=== PATIENT | male | born 1950 | race Hispanic/Latino ===

== ENCOUNTER → 2022-03-09 | Outpatient (CLI) | payer OTHER, MEDICARE | END | disposition home or self-care (01) | LOC: RAH 09:08 | PROVIDERS: ATTEND Student in an Organized Health Care Education/Training Program | DX: Z01.818 Encounter for other preprocedural examination (principal); N18.6 End stage renal disease | CPT/HCPCS: 93970 ==

== ENCOUNTER 2022-05-02 06:32 | Day surgery (SDC) | payer OTHER, MEDICARE ==
[2022-04-30 11:53] LABS: BASOPHILS % (AUTO) 0.4 % (0.0-5.0); EOSINOPHILS % (AUTO) 3.3 % (0.0-8.0); HEMATOCRIT 45.5 % (42-54); LYMPHOCYTES % (AUTO) 16.3 % (21.0-51.0); MEAN CORPUSCULAR HEMOGLOBIN 27.7 pg (27.0-33.0); MEAN CORPUSCULAR HGB CONC 32.1 g/dL (32.0-36.0); MEAN CORPUSCULAR VOLUME 86.3 fL (79-99); MONOCYTES % (AUTO) 7.3 % (3.0-13.0); NEUTROPHILS % (AUTO) 72.1 % (40.0-77.0); PLATELET COUNT (AUTO) 163 K/uL (130-400); RED BLOOD CELL COUNT(AUTO) 5.27 MIL/uL (4.50-6.20); RED CELL DISTRIBUTION WIDTH 13.7 % (11.0-15.5); WHITE BLOOD COUNT (AUTO) 9.5 K/uL (4.8-10.8)
[2022-04-30 12:05] LABS: PROTHROMBIN TIME 10.9 SEC (9.6-11.6)
[2022-04-30 12:06] LABS: PARTIAL THROMBOPLASTIN TIME 30.2 SEC (26.3-35.5)
[2022-05-01 10:45] VITALS: BP 143/79
[~2022-05-02] VITALS: Ht 172.7 cm; Wt 80.7 kg
[2022-05-02] VITALS (14 sets, daily range): BP systolic 121–141; BP diastolic 62–74
[~2022-05-02 06:32] MED LIST: ACET-66 PO; AEC81 PO; AMLO-258 PO; DAPA10TA PO; FOLI1TAB85 PO; FURO40TA5 PO; GLIP5TAB11 PO; LOVA20TA3 PO; OMEP20CA12 PO; VITAMIN D3 PO
[2022-05-02] MEDS ORDERED: 0.9% NACL 500ML IV.SOLN 500 ML IV ONE (09:00)
[2022-05-02] MEDS: CEFAZOLIN SODIUM 1 GM VIAL IVP ONE ×2 (09:24→10:19)
[2022-05-02] MEDS ORDERED: LIDOCAINE PF 100MG/5ML (2%) SYRINGE 5ML ONE (09:53)
[2022-05-02] MEDS ORDERED: FENTANYL CITRATE PF 50 MCG/1 ML 2ML VIAL ONE (09:53)
[2022-05-02] MEDS ORDERED: ROCURONIUM 10MG/1ML SYR 10 MG/ML ML ONE (09:53)
[2022-05-02] MEDS ORDERED: GLYCOPYRROLATE 1 MG/5 ML SYRINGE ONE (09:53)
[2022-05-02] MEDS ORDERED: PROPOFOL 10 MG/ML 20ML VIAL IV ONE (09:53)
[2022-05-02] MEDS ORDERED: CEFAZOLIN SODIUM 1 GM VIAL ONE (09:54)
[2022-05-02] MEDS ORDERED: MEPERIDINE-PF 25 MG/ML SYG ONE (11:04)
[2022-05-02] MEDS ORDERED: NEOSTIGMINE 5MG/5ML SYR IV ONE (11:12)
[2022-05-02] MEDS ORDERED: ONDANSETRON 4MG INJ ONE (11:49)
== END 2022-05-02 13:30 | disposition home or self-care (01) ==
LOC: DAH 06:32
PROVIDERS: ATTEND Student in an Organized Health Care Education/Training Program
DX: E11.22 Type 2 diabetes mellitus with diabetic chronic kidney disease (principal); I12.0 Hypertensive chronic kidney disease with stage 5 chronic kidney disease or end stage renal disease; N18.6 End stage renal disease; J44.9 Chronic obstructive pulmonary disease, unspecified; K21.9 Gastro-esophageal reflux disease without esophagitis; Z79.84 Long term (current) use of oral hypoglycemic drugs; Z98.890 Other specified postprocedural states; Z82.0 Family history of epilepsy and other diseases of the nervous system; Z87.891 Personal history of nicotine dependence; Z99.2 Dependence on renal dialysis; Z79.01 Long term (current) use of anticoagulants; Z79.899 Other long term (current) drug therapy
CPT/HCPCS: 36415 ×2; 36821; 71045; 82948 ×2; 84132; 85025; 85610; 85730; 86156; 86850; 86870; 86900; 86901; 86922; 87635; 93005; A4215; A4221; A4222; A4649 ×2; A4663; A4930; A6207; C1713 ×2; C9803; G0168; J0690; J1644; J2001; J2175; J2405; J2704; J2710; J3010; J3490; J7040

== ENCOUNTER 2022-08-08 10:41 | Day surgery (SDC) | payer OTHER, MEDICARE ==
[2022-08-08] MEDS ORDERED: IOHEXOL-350 75 ML VIAL IV ONE (11:01)
[2022-08-08] MEDS ORDERED: LIDOCAINE HCL-MPF 2% 10ML AMP IJ ONE (11:01)
[2022-08-08 11:30] LABS: BASOPHILS % (AUTO) 0.6 % (0.0-5.0); CREATININE 2.4 mg/dL (0.5-1.5); EOSINOPHILS % (AUTO) 2.7 % (0.0-8.0); HEMATOCRIT 40.2 % (42-54); LYMPHOCYTES % (AUTO) 21.2 % (21.0-51.0); MEAN CORPUSCULAR HEMOGLOBIN 29.2 pg (27.0-33.0); MEAN CORPUSCULAR HGB CONC 31.8 g/dL (32.0-36.0); MEAN CORPUSCULAR VOLUME 91.8 fL (79-99); NEUTROPHILS % (AUTO) 68.4 % (40.0-77.0); PLATELET COUNT (AUTO) 131 K/uL (130-400); RED BLOOD CELL COUNT(AUTO) 4.38 MIL/uL (4.50-6.20); RED CELL DISTRIBUTION WIDTH 14.9 % (11.0-15.5); WHITE BLOOD COUNT (AUTO) 6.8 K/uL (4.8-10.8)
[2022-08-08 11:37] LABS: INR 0.99 (0.85-1.15); PROTHROMBIN TIME 10.8 SEC (9.6-11.6)
[2022-08-08 11:38] LABS: PARTIAL THROMBOPLASTIN TIME 27.6 SEC (26.3-35.5)
[2022-08-08] MEDS ORDERED: MIDAZOLAM HCL 5 MG/ML 2ML VIAL IV ONE (11:53)
[2022-08-08] MEDS ORDERED: FENTANYL CITRATE PF 50 MCG/1 ML 2ML VIAL ONE (11:53)
[2022-08-08] MEDS ORDERED: 0.9%NACL 1000ML 1,000 ML IV ONE (11:58)
[2022-08-08] MEDS ORDERED: HEPARIN 10,000 UNIT/10ML (1,000 UNIT/ML) VIAL ONE (12:42)
[2022-08-08] MEDS ORDERED: IOHEXOL-350 50ML VIAL IV ONE (12:48)
== END 2022-08-08 14:25 | disposition home or self-care (01) ==
LOC: DAH 10:41
PROVIDERS: ATTEND Student in an Organized Health Care Education/Training Program
DX: T82.898A Other specified complication of vascular prosthetic devices, implants and grafts, initial encounter (principal); E11.22 Type 2 diabetes mellitus with diabetic chronic kidney disease; I12.0 Hypertensive chronic kidney disease with stage 5 chronic kidney disease or end stage renal disease; N18.6 End stage renal disease; J44.9 Chronic obstructive pulmonary disease, unspecified; Z79.01 Long term (current) use of anticoagulants; Z79.899 Other long term (current) drug therapy; Z87.891 Personal history of nicotine dependence; Z98.890 Other specified postprocedural states; Y83.2 Surgical operation with anastomosis, bypass or graft as the cause of abnormal reaction of the patient, or of later complication, without mention of misadventure at the time of the procedure
CPT/HCPCS: 37241; 36902; 80048; 85025; 85610; 85730; 82948; 36415; C1769 ×2; C1894 ×3; C1770 ×2; C1887; C1725; J3010; J7030; J1644 ×2; J3490; J2250; Q9967 ×2; A4215; A4222; A4221; A4663; A4216; A4606; A4223 ×3; 99156; 99157